=== PATIENT | female | born 2000 | race Caucasian/White ===

== ENCOUNTER 2024-08-01 14:22 | Outpatient (AMB) | payer OTHER, SELFPAY ==
--- NOTE | 2024-08-01 14:31 | A.OFFPC_ITS ---
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 Pysch: she states she struggles mostly with anxiety. Never on meds. Would like to talk to someone again. Neuro: She states that she has had intermittent headaches but she has noticed t hem a little bit more frequently. She says she wonders if it is related to her menses are not. Is mostly behind her eyes or above her eyes. She has noticed for the last few days that on and off the right side of her face feels numb/weak. She states that for about 15 seconds other day she felt like she could not lift/close her eyelid. She states that the skin around the eye felt weird and that it felt numb and she could not feel it. She states that she then had tingling on the right side of her lower face. She did not notice any asymmetry. No slurred speech or vision change. She says that she was able to move her eye without difficulty. No nausea or vomiting. She does not think it was related to anxiety Derm: In the past was on Accutane for acne. Would like to see Dermatology. 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 Surgical History (Updated 08/01/24 @ 14:39 by Darlin Rivas CMA) Hx of tonsillectomy History of wisdom tooth extraction Family History (Updated 08/01/24 @ 14:42 by Darlin Rivas CMA) Mother Asthma Maternal Grandfather Diabetes Social History Housing: House Alcohol intake: current Patient Tobacco Use Status: Never used Tobacco e-Cigarette/Vaping Use: Never Used Second Hand Smoke Exposure: No service: No Current occupational status: employed Current occupation: [employer] Current occupational exposures/hazards: No Cognitive needs: No Hearing needs: No Vision needs: Yes (glasses) Questionnaire PHQ-9 Over the last 2 weeks, how often have you been bothered by any of the following problems? 1. Little interest or pleasure in doing things: not at all 2. Feeling down, depressed, or hopeless: not at all 3. Trouble falling or staying asleep, or sleeping too much: not at all 4. Feeling tired or having little energy: more than half the days 5. Poor appetite or overeating: not at all 6. Feeling bad about yourself - or that you are a failure or have let yourself or your family down: not at all 7. Trouble concentrating on things, such as reading the newspaper or watching television: several days 8. Moving or speaking so slowly that other people could have noticed. Or the opposite - being so fidgety or restless that you have been moving around a lot more than usual: not at all 9. Thoughts that you would be better off or of hurting yourself in some way: not at all Total score: 3 Depression Screening Interpretation: Negative Depression Screening Done: Yes 74132 - PHQ-9 Billing: Yes Source: Developed by Drs. Isauro Carranza, Kala Greer, Bull Randolph and colleagues, with an educational samantha from [employer]. Thrive Questionnaire Date Thrive assessed: 07/29/24 I am a: Patient What is your living situation today?: I have a steady place to live Within the past 12 months, did the food you bought not last and you didn't have the money to get more?: Never true Within the past 12 months, did you worry whether your food would run out before you got money to buy more?: Never true Do you have trouble paying for medicines?: No Do you have trouble getting transportation to medical appointments?: No Do you have trouble paying your heating and electricity bill?: No Do you have trouble taking care of your child, family member or friend?: No Do you have trouble with day-to-day activities such as bathing, preparing meals, shopping, managing finances, etc.?: No Are you currently unemployed and looking for a job?: No Are you interested in more education?: No Please select the resources that you would like help with: None Currently or been in a relationship where the following occur: No concerns reported THRIVE Score: 0 AUDIT C Alcohol Use Questionnaire (AUDIT-C) 1. How often do you have a drink containing alcohol?: Monthly or less 2. How many drinks containing alcohol do you have on a typical day when you are drinking?: 1 or 2 3. How often do you have six or more drinks on one occasion?: Never Total Score: 1 MARTHA-7 AMB Questionnaire MARTHA-7 Date MARTHA - 7 assessed: 08/01/24 Feeling nervous, anxious, or on edge: 1 = Several days Not being able to stop or control worryin = Several days Worrying too much about different things: 1 = Several days Trouble relaxin = Several days Being so restless that it is hard to sit still: 1 = Several days Becoming easily annoyed or irritable: 0 = Not at all Feeling afraid as if something awful might happen: 0 = Not at all Total MARTHA-7 score (0-4 normal; 5-9 mild; 10-14 moderate; 15-21 severe): 5 Source: Developed by Drs. Isauro Carranza, Kala Greer, Bull Randolph and colleagues, with an educational samantha from [employer]. MARTHA-7 Assessment Billing MARTHA-7 Assessment Tool: MARTHA-7 Assessment 88916 Review of Systems ENT Reports Normal hearing present Neuro Reports Normal hearing present Physical exam (Primary Care) Vital Signs: Last Vital Signs Temp 98.4 F 08/01/24 14:36 Pulse 68 08/01/24 14:36 Resp 14 08/01/24 14:36 BP 96/64 08/01/24 14:36 Pulse Ox 98 08/01/24 14:36 Oxygen Delivery Method Room Air 08/01/24 14:36 BMI result Body Mass Index 23.0 Tobacco/Smoking Status: Tobacco use Status Tobacco use date assessed 08/01/24 08/01/24 14:40 Patient Tobacco Use Status Never used Tobacco 08/01/24 14:43 e-Cigarette/Vaping Use Never Used 08/01/24 14:43 PHQ-9: PHQ-9 Score PHQ-9: Total score 3 08/01/24 14:40 Depression Screening Interpretation: Negative Thrive Assessment: Date of Thrive Assessment Date Thrive assessed 07/29/24 08/01/24 14:40 Currently or been in a relationship where the following occur: No concerns reported Const Orientation/consciousness: patient oriented x3 HENMT Ears: hearing grossly normal bilaterally and TM's normal bilaterally General nose exam: No nasal polyps present Face and sinus: Yes sinuses nontender Mouth: Normal oral and palatal mucosa present Eyes Pupils: Equal, round and reactive pupils present EOM: EOMs intact bilaterally Neck Neck: Yes full ROM and Yes no lymphadenopathy Thyroid: Thyroid normal Chest Chest palpation & inspection: normal inspection of the chest Resp Auscultation: clear to auscultation bilaterally Cardio Rate: regular rate Rhythm: regular rhythm Heart sounds: S1 normal heart sound present and S2 normal heart sound present Peripheral pulses: Peripheral pulses 2+ throughout GI Other: Soft, nontender Auscultation: normal bowel sounds Rectal Exam - Female: deferred General: Yes no CVA tenderness Back/Spine/Pelvis Other: Nontender Back: no CVA tenderness Skin General skin exam: no rashes or lesions noted Neuro General: patient oriented x3, gait normal, CN's II-XI intact bilaterally and deep tendon reflexes 2+ bilaterally Cranial nerves: Yes Equal, round and reactive pupils present, Yes Normal accommodation reflex present, Yes Bilaterally intact EOM present, Yes Normal facial strength present, Yes Normal hearing present and Yes Ability to bilaterally elevate shoulders present Cognition (Neuro): normal cognition Gait exam (Neuro): Normal gait present Motor exam (neuro): 5/5 motor strength present throughout Sensory Exam: double simultaneous stimulation for sensation normal Coordination: [id number] test normal and Romberg test negative Extrem General: Yes normal to inspection and Yes full ROM Psych Affect: normal affect Attitude: cooperative Thought process: Normal thought process present Thought content: Normal thought content present Insight: Good insight present (Psych) Judgement: Good judgement present (Psych) Coding Level of Care Code New Pt Level 4 (64968) Complex EM visit Add On G2211 Diagnoses Generalized anxiety disorder F41.1 Right facial numbness R20.0 Frequent headaches R51.9 Acne L70.9 Additional Codes MARTHA-7 Assessment Billing - MARTHA-7 Assessment Tool: MARTHA-7 Assessment 05481 ([id number]) PHQ-9 - 22427 - PHQ-9 Billing: Yes ([id number]) Assessment & Plan Assessment & Plan (1) Generalized anxiety disorder: Code(s): F41.1 - Generalized anxiety disorder Category: Medical Plan: Referral to behavioral health (2) Right facial numbness: Code(s): R20.0 - Anesthesia of skin Category: Medical Plan: Currently asymptomatic. Labs ordered. MRI ordered. We will follow up pending test results. (3) Frequent headaches: Code(s): R51.9 - Headache, unspecified Category: Medical Plan: As above (4) Acne: Code(s): L70.9 - Acne, unspecified Category: Medical Plan: Referral to derm Orders: Orders Complete Blood Count Auto Diff Today F41.1 - Generalized anxiety disorder, R20.0 - Anesthesia of skin, R51.9 - Headache, unspecified Lipid Panel Today F41.1 - Generalized anxiety disorder, R20.0 - Anesthesia of skin, R51.9 - Headache, unspecified Lyme IgG/IgM w/reflex to WB Today F41.1 - Generalized anxiety disorder, R20.0 - Anesthesia of skin, R51.9 - Headache, unspecified Magnesium Today F41.1 - Generalized anxiety disorder, R20.0 - Anesthesia of skin, R51.9 - Headache, unspecified Comprehensive Met. Panel Today F41.1 - Generalized anxiety disorder, R20.0 - Anesthesia of skin, R51.9 - Headache, unspecified TSH reflex Free T4 Today F41.1 - Generalized anxiety disorder, R20.0 - Anesthesia of skin, R51.9 - Headache, unspecified Vitamin B12 and Folate Today F41.1 - Generalized anxiety disorder, R20.0 - Anesthesia of skin, R51.9 - Headache, unspecified MR head/brain wo con Today R20.0 - Anesthesia of skin, R51.9 - Headache, unspecified Referrals Behavioral Health Referral F41.1 - Generalized anxiety disorder Dermatology Referral L70.9 - Acne, unspecified
[2024-08-01 14:36] VITALS: BP 96/64; PULSE 68; RESP 14; TEMP 36.9; O2SAT 98; BMI 23.0
--- OUTSIDE RECORDS SUMMARY | 2024-08-01 14:58 | XMS_ITS | Encounter Summary ---
Author Organization [facility] Address [address] [place] [address] Phone Care Team Providers Care Factory Laborer Name Role Phone Provider, Nik SALINAS Primary Care Provider [phone] Encounter Details Date Type Department Care Team (Late st Contact Info) Description 03/30/2009 Documentation [facility] Family Medicine [address] [place] [address] Family Medicine, Physician [address] [place] [address] Social History Tobacco Use Types Packs/Day Years Used Date Smoking Tobacco: Never Assessed Comments Unknown Sex and Gender Information Value Date Recorded Sex Assigned at Female 11/05/2018 9:58 AM EDT Legal Sex Female 6:09 PM EDT Gender Identity Female 11/05/2018 9:58 AM EDT Sexual Orientation Straight 11/05/2018 9: 58 AM EDT documented as of this encounter Plan of Treatment Not on file documented as of this encounter Visit Diagnoses Not on filedocumented in this encounter Care Teams Factory Laborer Relationship Specialty Start Date End Date Provider, [place] [address] [address] PCP - General Pediatrics 03/28/22 01/03/24 documented as of this encounter
--- OUTSIDE RECORDS SUMMARY | 2024-08-01 14:58 | XMS_ITS | Encounter Summary ---
Author Organization [facility] Address [address] [place] [address] Phone Care Team Providers Care Portable Sawyer Name Role Phone Provider, Nik SALINAS Primary Care Provider [phone] Encounter Details Date Type Department Care Team (Late st Contact Info) Description 05/13/2009 Documentation [facility] [place] Family Medicine [address] [place] [address] Family Medicine, Physician [address] [place] [address] Social History Tobacco Use Types Packs/Day Years [...] on filedocumented in this encounter Care Teams Portable Sawyer Relationship Specialty Start Date End Date Provider, [place] [address] [address] PCP - General Pediatrics 03/28/22 01/03/24 documented as of this encounter
--- OUTSIDE RECORDS SUMMARY | 2024-08-01 14:58 | XMS_ITS | Encounter Summary ---
Author Organization [facility] Address [address] [place] [phone] Phone Care Team Providers Care Care Director Name Role Phone Provider, Nik SALINAS Primary Care Provider [phone] Encounter Details Date Type Department Care Team (Late st Contact Info) Description 08/06/2017 Conversion Encounter [facility] [address] [place] [address] Isauro Mejia MD [address] [place] [address] Social History Tobacco Use Types Packs/Day Years [...] on filedocumented in this encounter Care Teams Care Director Relationship Specialty Start Date End Date Provider, MD Nik [address] [place] [address] PCP - General Pediatrics 03/28/22 01/03/24 documented as of this encounter
--- OUTSIDE RECORDS SUMMARY | 2024-08-01 14:58 | XMS_ITS | Encounter Summary ---
Author Organization [facility] Address [address] [place] [address] Phone Care Team Providers Care Director Of Quality Control Name Role Phone Provider, Nik SALINAS Primary Care Provider [phone] Encounter Details Date Type Department Care Team (Late st Contact Info) Description 05/14/2009 Documentation [facility] Family Medicine [address] [place] [address] Family Medicine, Physician [address] [place] [address] Social History Tobacco Use Types Packs/Day Years [...] on filedocumented in this encounter Care Teams Director Of Quality Control Relationship Specialty Start Date End Date Provider, [place] [address] PCP - General Pediatrics 03/28/22 01/03/24 documented as of this encounter
--- OUTSIDE RECORDS SUMMARY | 2024-08-01 14:58 | XMS_ITS | Clinical Summary ---
Author Organization [facility] Address [address] [place] [id number] Phone Care Team Providers Care Maxillofacial Prosthetics Dentist Name Role Phone Unavailable Primary Care Provider Unavailabl e Allergies Active Allergy Reactions Criticality Noted Date Comments Chlorine Hives High 09/15/2017 Trouble breathing Environmental Medications Cetirizine HCl 10 MG capsule Take 20 mg by mouth every other day. Active Apri 0.15-30 MG-MCG per tabletIndicatio ns:Dysmenorrhea TAKE 1 TABLET BY MOUTH EVERY DAY 28 tablet 2 0 Active fluticasone (Flonase) 50 MCG/ACT nasal sprayIndication s:Acute non-recurrent maxillary sinusitis Administer 1 spray into each nostril daily. 1 Units 2 1 Active Active Problems Problem Noted Date Diagnosed Date Acne vulgaris 09/27/2021 Overview (09/27/2021): Derm: clinda lotion, panoxyl, retin a, zinc Dysmenorrhea 09/06/2019 Assessment & Plan (09/06/2019 10:34 AM EDT): Discussed risks and benefits of OCPs. Discussed risk of blood clots and symptoms to watch for. Discussed that taking antibiotics decrease the effectiveness of the OCP at preventing so best to abstain from sex at that time. To take OCP at the same time q day. Discussed what to do if misses doses. Recommend to always using condoms if sexually active since OCPs do not prevent STDs Other seasonal allergic rhinitis 09/17/2015 Assessment & Plan (09/06/2019 10:34 AM EDT): Well managed, claritin prn. Assessment & Plan (11/05/2018 10:08 AM EDT): Well managed with Flonase and Claritin daily. Immunizations Immunization Administration Dates Next Due DTaP 04/11/2006, 3,02/14/2002, 002,2001 HPV Vaccine 9 Valent 07/11/2016,12/25/2015,09/16 Hep A, ped/adol 11/05/2018,10/24/2017 Hep B, ped/adol 2001,2001,2001 Hib (PRP-T) 05/13/2002, 2,2001, 002 IPV 04/11/2006, 2,2001, 002 MMR 02/08/2005,02/08/2002 Meningococcal B Bexsero 09/06/2019 Meningococcal Conj (Menactra) MCV4P 10/24/2017,0 06/07/2012 Pneumococcal Conjugate 11/20/2002,2001,2001, 002 Tdap 06/07/2012 Varicella 04/13/2007,02/08/2002 Family History Medical History Relation Name Comments No Known Problems Father [place] Asthma Father's Brother No Known Problems Maternal Grandfather No Known Problems Maternal Grandmother Asthma Mother Agustina Diabetes Paternal Grandfather type II Heart disease Paternal Grandfather No Known Problems Paternal Grandmother No Known Problems Sister Courtney Relation Name Status Comments Father [place] Alive Father's Brother Alive asthma diag nosed with Asthma, unspecified Maternal Grandfather Alive healthy Maternal Grandmother Alive healthy Mother Agustina Alive Paternal Grandfather Alive Paternal Grandmother Alive healthy Sister Courtney Alive Social History Tobacco Use Types Packs/Day Years Used Date Smoking Tobacco: Never Smokeless Tobacco: Never Alcohol Use Standard Drinks/Week Comments No 0 (1 standard drink = 0.6 oz pur e alcohol) Hunger/Food Answer Date Recorded In the last 12 months, did y ou or your family ever eat less than you felt you should because there wasn't enough money for food? No 09/06/2019 Stable Housing Answer Date Recorded Are you worried that in the next 2 months you may not have stable housing? No 09/06/2019 Transportation Concerns Answer Date Rec orded In the last 12 months, have you or your family ever had to go without healthcare because you didn't have a way to get there? No 09/06/2019 Hazards in Home Answer Date Recorded Think about the place you li ve. Do you have problems with any of the following? Pests (mice or roaches), mold, no/not working smoke detectors, water leaks, no window guards. No 2019 Financing Utilities Answer Date Recorde d In the last 12 months, has t he electric, gas, oil, or water company threatened to shut off your services in your home? No 09/06/2019 Safety at Home Answer Date Recorded Are you or your family worried about feeling saf e in your home? No 09/06/2019 Outside Support Answer Date Recorded Do you feel that you need mo re support from other people or programs to help you care for yourself or your family? No 09/06/2019 Understanding Health Concerns Answer Da te Recorded Do you need help understandi ng your or your child's healthcare needs (diagnosis, medications, plan, etc.)? No 09/06/2019 Financing Health Concerns Answer Date R ecorded In the last 12 months, was t here a time when your child needed to see a doctor or get medications or supplies but could not because of cost? No 09/06/2019 Missing School or Work Answer Date Felipe rded Did you or your child miss s chool or work because of a health problem that could have been avoided? No 09/06/2019 Comments No Sex and Gender Information Value Date Recorded Sex Assigned at Female 11/05/2018 9:58 AM EDT Legal Sex Female 6:09 PM EDT Gender Identity Female 11/05/2018 9:58 AM EDT Sexual Orientation Straight 11/05/2018 9: 58 AM EDT Last Filed Vital Signs Vital Sign Reading Time Taken Comments Blood Pressure 114/62 09/06/2019 9:57 AM EDT Pulse 80 09/15/2017 3:58 PM EDT Temperature 37 ??C (98.6 ??F) 10/12/2020 9:58 AM EDT Respiratory Rate - - Oxygen Saturation 98% 09/15/2017 3:58 PM EDT Inhaled Oxygen Concentration - - Weight 70.3 kg (155 lb) 10/12/2020 9:58 AM EDT Height 172.1 cm (5' 7.75 ) 09/06/2019 9:57 AM ED T Body Mass Index 23.74 09/06/2019 9:57 AM EDT Plan of Treatment Health Maintenance Due Date Last Done Comments Men B Vaccine (2 of 2 - Bexs ero SCDM 2-dose series) 03/07/2020 09/06/2019 DTaP,Tdap,and Td Vaccines (6 - Td or Tdap) 06/07/2022 06/07/2012, 04/11/2006, 05/13/2002, Additional history exists Influenza Vaccines (#1) 2023 COVID-19 Vaccine (2023-2 5 season) 2023 03/16/2021, 06/20/2020, 05/23/2020 Hepatitis B Vaccines Completed 2001, 2001, 2001 HIB Vaccines Completed 05/13/2002, 07/19, 2001, Additional history exists Pneumococcal Vaccine Completed 11/20/2002, 2001, 2001, Additional history exists MMR Vaccines Completed 02/08/2005, 02/08/2002 IPV Vaccines Completed 04/11/2006, 10/0 11/2001, 2001, Additional history exists Varicella Vaccines Completed 04/13/2007, 02/08/2002 HPV Vaccines Completed 07/11/2016, 10/0 09/2015, 09/17/2015 Meningococcal Vaccine Completed 10/24/2017, 013 Hepatitis A Vaccines Completed 11/05/2018, 10/25/19 18 Procedures * Due to [place] Party Over Here law, this organization might not be sharing sensitive test results. Procedure Name Priority Date/Time Associated Diagnosis Comments CHLAMYDIA AND GONORRHEA, AMPLIFIED Routine 09/06/2019 10:41 AM EDT Dysmenorrhea from Last 3 Months or Most Recently Relevant to Health Maintenance Results * Due to [place] state law, this organization might not be sharing sensitive test results. * Chlamydia and Gonorrhea, Amplified (09/06/2019 10:41 AM EDT) Chlamydia Trachomatis, DNA Probe NEGATIVE (NEG) [facility] Comment: No Chlamydia Trachomatis RNA detected in this patient's sample ? (REFERENCE RANGE/NORMAL VALUE: NOT DETECTED) ? Note: This test uses elevator service mechanic- mediated amplification method to detect rRNA from C. Trachomatis URINE GC AMP PROBE NEGATIVE (NEG) [facility] Comment: No Neisseria Gonorrhoeae RNA detected in this patient's sample ? (REFERENCE RANGE/NORMAL VALUE: NOT DETECTED) ? NOTE: This test uses elevator service mechanic-mediated amplification method to detect rRNA from N.Gonorrhoeae. A negative result does not preclude infection. In the case of a negative urine result, testing of an endocervical(female) or urethral (male) specimen is recommended if there is high clinical suspicion of infection. Due to very high sensitivity of Nucleic Acid Amplification Test, false positive results may occur. Therefore, specimen handling is extremely important. In patients in whom the disease is unlikely, additional sample for testing should be considered after an initial positive result. The performance characteristics of this test have not been evaluated in children. The Aptima Combo2 assay is not intended for the evaluation of suspected sexual abuse or for other medico-legal indications. The ordering provider should assess if the patient had consensual sex without risk of sexual abuse. Consult the [facility] if needed. Contact phone number . Therapeutic failure or success cannot be determined with the Aptima Combo2 assay since nucleic acid may persist following appropriate antimicrobial therapy. The Centers for Disease Control and Prevention (CDC) recommends confirmatory retesting using culture or a different nucleic acid amplification test when positive results occur, if indicated. Testing performed or reported by [facility], a Service of [facility], [address] [place] [address] Curits Enciso MD, Hand Bunch Maker Urine (Urine) 09/06/2019 10: 41 AM EDT 09/06/2019 7:32 PM EDT us Ayala Guerra SHEETROCK APPLICATOR LAB MICROBIOLOGY - GENER AL ORDERABLES Final Result [facility] from Last 3 Months or Most Recently Relevant to Health Maintenance [facility]
== END 2024-08-01 14:59 | disposition home or self-care (01) ==
LOC: HO.HMCFM 14:22
PROVIDERS: PCP Physician Assistant; Visit Provider Physician Assistant
DX: F41.1 Generalized anxiety disorder (principal); R20.0 Anesthesia of skin; R51.9 Headache, unspecified; L70.9 Acne, unspecified

== ENCOUNTER → 2024-08-01 14:22 | Outpatient (BNVA) | payer OTHER, SELFPAY | PROVIDERS: PCP Physician Assistant; Visit Provider Physician Assistant | DX: F41.1 Generalized anxiety disorder (principal); R51.9 Headache, unspecified; R20.0 Anesthesia of skin; L70.9 Acne, unspecified | CPT/HCPCS: 96127 ==

== ENCOUNTER → 2024-08-21 17:43 | Outpatient (BNV) | payer OTHER, SELFPAY | PROVIDERS: PCP Physician Assistant; Visit Provider Radiology Diagnostic Radiology | DX: R51.9 Headache, unspecified (principal) | CPT/HCPCS: 70551 ==

== ENCOUNTER 2024-08-21 17:44 | Outpatient (REF) | payer OTHER, SELFPAY ==
--- NOTE | ~2024-08-21 | MR_ITS ---
EXAMINATION: MR BRAIN WITHOUT IV CONTRAST HISTORY: R51.9 - Headache, unspecified TECHNIQUE: Sagittal T1, and axial T1, FLAIR, T2, gradient echo, and diffusion weighted MR images of the brain were obtained. COMPARISON: There are no prior studies available for comparison. FINDINGS: The brain parenchyma is unremarkable, demonstrating normal matos/white differentiation. No foci of abnormal signal intensity are identified. The ventricular system is normal in size and configuration. There is no mass effect or midline shift. No intra or extra-axial fluid collections are identified. There are no foci of restricted diffusion. Normal vascular flow voids are noted in the basilar and carotid arteries. The visualized paranasal sinuses are clear. MR/MR head/brain wo con IMPRESSION: Unremarkable MRI of the brain without contrast. Electronically signed by: Isauro Velez MD 08/22/2024 09:03 AM EDT
== END 2024-08-21 17:45 | disposition home or self-care (01) ==
LOC: HO.MRI 17:44
PROVIDERS: PCP Physician Assistant; Visit Provider Physician Assistant
DX: R51.9 Headache, unspecified (principal); R20.0 Anesthesia of skin
CPT/HCPCS: 70551